=== PATIENT | female | born 1995 | race Caucasian/White ===

== ENCOUNTER 2020-02-03 21:24 | Emergency (ER) | payer OTHER ==
[~2020-02-03] VITALS: Ht 175.3 cm; Wt 77.1 kg
[2020-02-03] MEDS ORDERED: BIRTH CONTROL (21:30)
[2020-02-03] MEDS ORDERED: Cleocin HCl300 MG PO (22:11)
== END 2020-02-03 22:35 | disposition home or self-care (01) ==
LOC: ER 21:24
DX: K08.89 Other specified disorders of teeth and supporting structures (principal)
CPT/HCPCS: 96372; 99282; J1885